=== PATIENT | male | born 1985 | race Caucasian/White ===

== ENCOUNTER → 2023-08-27 | Outpatient (CLI) | payer OTHER ==
--- NOTE | 2023-08-28 13:37 | US ---
EXAMINATION TYPE: US renal artery duplex complet DATE OF EXAM: 08/27/2023 COMPARISON: NONE CLINICAL INDICATION: Male, 37 years old with history of I16.1 HYPERTENSIVE EMERGENCY; HTN medications stabilize but do not lower blood pressure; Average 140/110 MEASUREMENTS: RENAL SIZE: Right Kidney: 12.6 x 6.7 x 6.2 cm Left Kidney: 13.0 x 7.1 x 5.6 cm Right Kidney: wnl Left Kidney: wnl Abd Aorta: Limited visualization; WNL as visualized RESISTANCE INDEX Right: 0.59 Left: 0.58 RA/AO RATIO (< 3.5 ) Right: 0.69 Left: 0.61 RENAL ARTERY VELOCITY ( < 180 cm/s) Right: 53 Left: 47 Surgical Rn Notes: Difficult to non - diagnostic exam due to patient body habitus and overlying radha l gas. IMPRESSION: 1. No suspicious changes to suggest renal artery stenosis. 2. There is some limitation on the examination due to body habitus.
== END | disposition home or self-care (01) ==
LOC: RADUSWWP 06:50
PROVIDERS: ATTEND Internal Medicine Geriatric Medicine
DX: I16.1 Hypertensive emergency (principal)
CPT/HCPCS: 93975